=== PATIENT | male | born 1970 | race Two or more races ===

== ENCOUNTER 2019-02-03 15:45 | Emergency (ER) | payer MEDICAID ==
[~2019-02-03] VITALS: Ht 182.9 cm; Wt 99.8 kg
[2019-02-03 16:16] VITALS: BP 120/94
== END 2019-02-03 17:25 | disposition home or self-care (01) ==
LOC: ER 15:53
DX: S61.230A Puncture wound without foreign body of right index finger without damage to nail, initial encounter (principal); X58.XXXA Exposure to other specified factors, initial encounter; Y93.89 Activity, other specified; Y99.8 Other external cause status; Y92.89 Other specified places as the place of occurrence of the external cause
CPT/HCPCS: 73140